=== PATIENT | male | born 1950 | race Caucasian/White ===

== ENCOUNTER 2024-02-08 22:28 | Emergency (ER) | payer OTHER, SELFPAY ==
[2024-02-08 22:30] VITALS: BP 180/106
[2024-02-08 22:49] LABS: % Basophils 0.6 % (0-2); % Eosinophils 3.4 % (0-6); % Immature Granulocytes 0.3 % (0-0.5); % Lymphocytes 25.2 % (20.5-51.1); % Monocytes 10.8 % (1.7-9.3); % Neutrophils 59.7 % (42.2-75.2); Absolute Eosinophils 0.2 10^3/uL (0-0.7); Absolute Lymphocytes 1.6 10^3/uL (1.2-3.4); Absolute Monocytes 0.7 10^3/uL (0.1-0.6); Absolute Neutrophils 3.7 10^3/uL (1.4-6.5); Hematocrit 41.3 % (39.0-52.0); Hemoglobin 14.7 g/dL (13.0-18.0); Mean Corp Hgb Conc. 35.6 g/dL (33.0-37.0); Mean Corpuscular Hgb 29.9 pg (27.0-31.0); Mean Corpuscular Volume 84.1 fL (80.0-94.0); Mean Platelet Volume 8.5 fL (7.4-10.4); Nucleated Red Blood Cells % 0 % (-); Platelet Count 247 10^3/uL (130-400); Red Blood Cell Count 4.91 10^6/uL (4.70-6.10); Red Cell Dist. Width 12.6 % (11.5-14.5); White Blood Cell Count 6.2 10^3/uL (4.8-10.8)
[2024-02-08 23:12] LABS: ALT (SGPT) 39 U/L (0-50); AST (SGOT) 38 U/L (17-59); Alkaline Phosphatase 65 U/L (38-126); Blood Urea Nitrogen 25 mg/dl (9-20); Calcium 8.9 mg/dl (8.4-10.2); Carbon Dioxide 24 mmol/L (22-30); Chloride 106 mmol/L (98-107); Glucose 121 mg/dl (70-99); Lipase 225 U/L (23-300); Potassium 3.7 mmol/L (3.5-5.1); Sodium 136 mmol/L (135-145); Total Bilirubin 0.7 mg/dl (0.2-1.3); Total Protein 6.8 g/dl (6.3-8.2); eGFR > 60.00
[2024-02-08 23:13] LABS: Troponin I < 0.012 ng/ml
--- NOTE | 2024-02-09 00:12 | ED.GENMED ---
History of Present Illness
General
Chief Complaint: Chest Pain
Source: patient and spouse
Time Seen by Provider: 02/09/24 00:01
Travel History
Have you had any contact with someone who has COVID-19?: No
Do you have any symptoms of coronavirus? Fever > 100 degrees, chills, cough, shortness of breath, sore throat, loss of taste or smell, muscle aches, or headache?: No
History of Present Illness
History of Present Illness:
73-year-old male presents to the emergency room complaining of lower chest and upper abdominal discomfort. Symptoms began at about 8 PM. Symptoms are constant. Pain radiates to the back. Patient was laying in bed when the symptoms began. No
associated shortness of breath, diaphoresis, nausea or vomiting. Patient denies any previous symptoms such as this.
Phy Exam
Physical Exam
Physical Exam:
General: Awake, Alert, Oriented X3. No acute distress.
Vitals: unremarkable
Head: Atraumatic
Eyes: Pupils equal, EOMI
Throat: Airway intact, no exudates
Neck: Trachea midline
Lungs: Clear and equal b/l
Heart: Regular rate, no murmurs
Abd: Soft, mild epigastric tenderness to palpation, No pulsatile mass
Neuro: Nonfocal
Skin: Warm, dry, no rash
Extremities: pulses equal b/l, no edema
Scores
Heart Score for Chest Pain Patients
STEMI patient?: No
History: Slightly or Non-Suspicious
ECG: Normal
Age: >/= 65 years
Risk Factors: 1 or 2 Risk Factors
Troponin: </= Normal Limit
Heart Score for Chest Pain Patients: 3
Heart Score Risk: 2.5% MACE over next 6 weeks
Course
Orders/Labs/Results
Orders:
Orders
02/08/24 22:29
Electrocardiogram (*1) Urgent
Reason for Study: Chest Pain
EKG- Treatment ONCE
02/08/24 22:44
Complete Blood Count/With Diff Urgent
Comprehensive Metabolic Panel Urgent
Lipase Urgent
Troponin I Urgent
02/09/24 00:09
Famotidine [Pepcid] 20 mg IV NOW STA
02/09/24 00:11
CR Chest - 2 Views Urgent
Comment:
Reason For Exam: chest pain
02/09/24 00:27
Troponin I Urgent
Abnormal Lab Results
02/08/24
22:44
Absolute Monos (auto) 0.7 H 10^3/uL
(0.1-0.6)
Monocytes % 10.8 H %
(1.7-9.3)
BUN 25 H mg/dl
(9-20)
Glucose 121 H mg/dl
(70-99)
02/08/24 22:44
02/08/24 22:44
Vital Signs
Initial and Last Documented VS:
Initial Vital Signs
Temp Pulse Resp BP Pulse Ox
97.6 F 90 18 180/106 96
02/08/24 22:30 02/08/24 22:30 02/08/24 22:30 02/08/24 22:30 02/08/24 22:30
Last Documented Vital Signs
Temp Pulse Resp BP Pulse Ox
97.6 F 90 18 180/106 96
02/08/24 22:30 02/08/24 22:30 02/08/24 22:30 02/08/24 22:30 02/08/24 22:30
MDM/Problems Addressed
Differential Diagnosis Includes:
Acute coronary syndrome, pneumothorax, pancreatitis, gastritis, duodenal ulcer
MDM/Problems Addressed:
Patient presents with chest pain/upper abdominal pain. EKG is unremarkable. Troponins negative x 2. Physical exam the patient does have some epigastric tenderness to palpation. Rest of his abdominal exam is benign. Vital signs are reassuring.
He did have an initial high blood pressure but repeat blood pressure in the room more than 135 systolic range. Suspect the patient is having gastritis or perhaps even a duodenal ulcer. Recommend increasing Protonix to 40 mg today. Follow-up with
GI. Return if symptoms progress over the next 24 hours.
*Radiology
Radiology exam reviewed: preliminary read by ED provider (I personally viewed the patient's chest x-ray, no acute disease)
*Pulse Oximetry
Patient hypoxic: no
*EKG
Interpreted by ED Provider?: Yes
Interpretation: normal
Heart Rate: 85
Rate: normal
Rhythm: sinus and PAC's
Interval: normal interval
QRS Pattern: normal QRS
Ischemia: no ischemia
*Wool Classer Interpretation
Rate: normal
Interpretation: normal
Rhythm: sinus
*Critical Care Note
Total Time (30-74mins, 75-104mins- exclusive of procedures): Not Applicable
ED Attending Note
-
Portions of this chart may have been created with voice recognition software.� Occasional wrong word or��sound alike� substitutions may have occurred due to the inherent limitations of voice recognition software.
Discharge Plan
Departure
Patient Disposition: Home (Routine Discharge)
Date of Disposition: 02/09/24
Time of Disposition: 01:36
Patient with high blood pressure during this ER visit?: Yes
Condition: Good
Discharge Problem:
Abdominal pain
Instructions: Abdominal Pain, BLOOD PRESSURE
Referrals:
Vance Heredia MD [Family Provider] -
Michelle Magallon, [Active] -
Activity Restrictions/Additional Instructions:
Increase omeprazole to 40mg of day. Return to the ER if you are feeling like the discomfort is getting worse. Follow up with GI...call tomorrow to make an appointment.
Interventions
Interventions:
*Risk Screen - Suicide Last Done: 02/08/24 22:30
*General Assessment Last Done: 02/08/24 22:30
*Neglect/Abuse Screening Last Done: 02/08/24 22:30
[2024-02-09] MEDS: PEPCID 20 MG IV (00:29)
[2024-02-09 00:59] LABS: Troponin I < 0.012 ng/ml
== END 2024-02-09 02:07 | disposition home or self-care (01) ==
LOC: EMR 22:28
PROVIDERS: Student in an Organized Health Care Education/Training Program; EMERGENCY PHYSICIAN Emergency Medicine; FAMILY PHYSICIAN Family Medicine
DX: R10.9 Unspecified abdominal pain (principal); R03.0 Elevated blood-pressure reading, without diagnosis of hypertension
CPT/HCPCS: 99283; 96374; 71046; 80053; 83690; 84484; 85025; 93005

== ENCOUNTER → 2024-02-21 11:16 | Outpatient (REF) | payer OTHER, SELFPAY | LOC: HWRAD 11:16 | PROVIDERS: ATTENDING PHYSICIAN Family Medicine | DX: K59.09 Other constipation (principal) | CPT/HCPCS: 74018 ==